=== PATIENT | male | born 1970 | race Caucasian/White ===

== ENCOUNTER 2021-09-13 14:57 | Emergency (ER) | payer BC ==
[2021-09-13 15:33] LABS: HEMOGLOBIN 16.4 gm/dl (14.0-17.5); RED BLOOD COUNT 5.26 M/UL (4.20-5.50); WHITE BLOOD COUNT 10.6 K/UL (4.5-11.0)
[2021-09-13 15:58] LABS: BUN/CREATININE RATIO 12 (0-10)
[2021-09-13] MEDS ORDERED: PERCOCET 5/325 T1 EA PO (19:09)
[2021-09-13] MEDS ORDERED: FLOMAX0.4 MG PO (19:13)
[2021-09-13] MEDS ORDERED: ONDANSETRON ODT4 MG SL (19:13)
== END 2021-09-13 20:34 | disposition home or self-care (01) ==
LOC: ER1 14:57
PROVIDERS: Physician Assistant
DX: N13.2 Hydronephrosis with renal and ureteral calculous obstruction (principal); M16.11 Unilateral primary osteoarthritis, right hip; E78.5 Hyperlipidemia, unspecified; Z88.0 Allergy status to penicillin
CPT/HCPCS: 80053; 81001; 83690; 85025; 96374; 96375; 96376; 99284; J1170; J1885; J2270; J2405